=== PATIENT | female | born 1940 | race Caucasian/White ===

== ENCOUNTER 2018-04-13 09:45 | Outpatient (CLI) | payer MEDICARE, SELFPAY ==
[2018-04-13 14:11] LABS: HCT 42.4 % (36.0-46.0); HGB 13.7 g/dL (12.0-15.5); Mean Corp. HGB Concentration 32.3 g/dL (32.0-36.0); Mean Corpuscular Hemoglobin 30.1 pg (27.0-33.0); Mean Corpuscular Volume 93.2 fL (80-95); Mean Platelet Volume 11.5 fL (8.0-11.0); Platelet Count 228 x1000/uL (130-400); RBC 4.55 m/cumm (4.00-5.20); RBC Distribution Width 13.8 % (11.7-14.6)
[2018-04-13 15:10] LABS: ALT 27 U/L (12-78); AST 24 U/L (15-37); Albumin 3.9 g/dL (3.4-5.0); Alkaline Phosphatase 72 U/L (46-116); Anion Gap 6.3 mmol/L (3-11); BUN 15 mg/dL (7-18); Bilirubin, Total 0.5 mg/dL (0.2-1.0); CO2 28.7 mmol/L (21.0-32.0); CREATININE 0.96 mg/dL (0.55-1.02); Calcium 9.2 mg/dL (8.5-10.1); Chloride 101 mmol/L (98-107); Estimated GFR 56.06 (mL/min/1.73m2); Glucose 95 mg/dL (70-100); Magnesium 1.9 mg/dL (1.8-2.4); Potassium 4.4 mmol/L (3.5-5.1); Sodium 136 mmol/L (136-145); TSH (W/Ref FT4) 4.19 uIU/mL (0.358-3.74); Total Protein 8.6 g/dL (6.4-8.2)
[2018-04-13 15:34] LABS: FREE T4 0.97 ng/dL (0.76-1.46)
== END 2018-04-13 10:05 ==
PROVIDERS: PCP Student in an Organized Health Care Education/Training Program; Visit Provider Student in an Organized Health Care Education/Training Program
DX: R53.83 Other fatigue (principal); R25.2 Cramp and spasm; E86.0 Dehydration
CPT/HCPCS: 36415; 80053; 85027; 83735; 84439; 84443

== ENCOUNTER 2019-05-03 02:36 | Outpatient (CLI) | payer MEDICARE, SELFPAY ==
[2019-05-03 13:22] LABS: Anion Gap 6.9 mmol/L (3-11); BUN 15 mg/dL (7-18); CO2 30.1 mmol/L (21.0-32.0); CREATININE 0.97 mg/dL (0.55-1.02); Calcium 9.2 mg/dL (8.5-10.1); Calculated LDL 138 mg/dL; Chloride 102 mmol/L (98-107); Cholesterol 257 mg/dL (50-200); Estimated GFR 55.26 (mL/min/1.73m2); Glucose 92 mg/dL (70-100); HDL Cholesterol 87 mg/dL (40-60); Potassium 4.8 mmol/L (3.5-5.1); Sodium 139 mmol/L (136-145); TSH (W/Ref FT4) 6.42 uIU/mL (0.36-3.74); Triglyceride 164 mg/dL (30-150)
[2019-05-03 13:51] LABS: FREE T4 0.79 ng/dL (0.76-1.46)
== END 2019-05-03 02:56 ==
PROVIDERS: PCP Student in an Organized Health Care Education/Training Program; Visit Provider Student in an Organized Health Care Education/Training Program
DX: I10 Essential (primary) hypertension (principal); R79.89 Other specified abnormal findings of blood chemistry; Z13.6 Encounter for screening for cardiovascular disorders
CPT/HCPCS: 36415; 80048; 80061; 84439; 84443

== ENCOUNTER 2019-09-26 21:34 | Outpatient (REF) | payer MEDICARE, SELFPAY ==
[2019-09-26 19:23] LABS: Bilirubin Negative (Negative); Blood Moderate (Negative); Clarity Cloudy (Clear); Glucose Negative (Negative); Ketones Negative (Negative); Leukocyte Esterase Moderate (Negative); Nitrite Positive (Negative); Specific Gravity 1.015 (1.005-1.025); Urobilinogen 0.2 EU/dL (Up TO 0.2); pH 6.5 (5-8)
[2019-09-26 20:02] LABS: Epithelial Cells Few HPF (Negative); Other Cells Moderate Renal (Negative); RBC Negative HPF (0-2); WBC >50 HPF (0-5)
[2019-09-26 20:03] LABS: Bacteria Many HPF (Negative); C & S Indicated? Yes; Casts Negative LPF (Negative); Crystals Negative HPF (Negative); Mucus Negative (Negative)
== END 2019-09-26 21:54 ==
LOC: LBN 21:34
PROVIDERS: PCP Student in an Organized Health Care Education/Training Program; Visit Provider Student in an Organized Health Care Education/Training Program
DX: R82.90 Unspecified abnormal findings in urine (principal); R82.79 Other abnormal findings on microbiological examination of urine; R42 Dizziness and giddiness
CPT/HCPCS: 87077; 81003; 81015; 87086; 87186

== ENCOUNTER 2019-10-03 10:23 | Emergency (ER) | payer MEDICARE, SELFPAY ==
[2019-10-03] VITALS (17 sets, daily range): BP systolic 159–204; BP diastolic 61–76; PULSE 76–101; RESP 9–19; TEMP 36.5; O2SAT 87–98
--- NOTE | 2019-10-03 11:00 | DI.RAD_ITS ---
EXAM: XR CHEST 2V PA LATERAL CLINICAL HISTORY: Hypertension, paresthesias. TECHNIQUE: 2D digital imaging was performed. COMPARISON: No exams were available for comparison FINDINGS: LUNGS: Clear. No pleural abnormality seen. HEART: Normal. MEDIASTINUM: Normal. There is no evidence of pneumothorax. BONE:Degenerative changes are seen in the spine. No compression fractures are seen. IMPRESSION: No acute pulmonary findings. DATA REPOSITORY: RADIATION DOSE DELIVERED:
--- NOTE | 2019-10-03 11:00 | DI.CT_ITS ---
EXAM: CT HEAD WO CLINICAL HISTORY: Hypertension, paresthesias, weakness. TECHNIQUE: Imaging Protocol: Axial computed tomography images with coronal and sagittal reformatted images were created and reviewed COMPARISON: No exams were available for comparison FINDINGS: Ventricles and Extra axial spaces: Normal in size and morphology for the patient's age. Hemorrhage: None. Cerebral parenchyma: Normal. Midline shift: None. Brainstem/Cerebellum: Normal. Calvarium: Normal. Visualized Paranasal sinuses/Mastoids: mild ethmoid mucosal thickening. IMPRESSION: Normal CT of the head. RADIATION DOSE DELIVERED: DATA REPOSITORY: All CT scans at this facility are submitted to the National Radiology Data Registry (NRDR) Dose Index Registry (DIR) with the [employer] ([employer]). RADIATION OPTIMIZATION: All CT scans at this facility use at least one of these dose optimization te chniques: automated exposure control; mA and/or kV adjustment per patient size (includes targeted exa ms where dose is matched to clinical indication); or iterative reconstruction.
[2019-10-03 11:20] LABS: Abs Immature Grans 0.01 k/cumm (0.0-0.09); Absolute Basophil Count 0.02 k/cumm (0.0-0.2); Absolute Eosinophil Count 0.09 k/cumm (0.0-0.7); Absolute Lymphocyte Count 1.48 k/cumm (1.2-3.4); Absolute Monocyte Count 0.39 k/cumm (0.11-0.7); Absolute Neutrophil Count 4.44 k/cumm (1.2-6.7); Basophils % 0.3; Eosinophils % 1.4; HCT 41.9 % (36.0-46.0); HGB 14.3 g/dL (12.0-15.5); Immature Grans % 0.2 %; Mean Corp. HGB Concentration 34.1 g/dL (32.0-36.0); Mean Corpuscular Volume 90.9 fL (80-95); Mean Platelet Volume 10.7 fL (8.0-11.0); Monocytes % 6.1; Platelet Count 232 x1000/uL (130-400); RBC 4.61 m/cumm (4.00-5.20); RBC Distribution Width 13.8 % (11.7-14.6); White Blood Cell Count 6.43 k/cumm (4.4-10.8)
[2019-10-03 11:39] LABS: ALT 23 U/L (14-59); AST 24 U/L (15-37); Albumin 3.8 g/dL (3.4-5.0); Alkaline Phosphatase 74 U/L (46-116); Anion Gap 8.9 mmol/L (3-11); BUN 11 mg/dL (7-18); Bilirubin, Total 0.4 mg/dL (0.2-1.0); CO2 25.1 mmol/L (21.0-32.0); CREATININE 0.92 mg/dL (0.55-1.02); Calcium 8.9 mg/dL (8.5-10.1); Chloride 98 mmol/L (98-107); Estimated GFR 58.59 (mL/min/1.73m2); Glucose 123 mg/dL (74-106); Magnesium 1.7 mg/dL (1.8-2.4); Sodium 132 mmol/L (136-145); TSH (W/Ref FT4) 7.88 uIU/mL (0.36-3.74); Total Protein 8.6 g/dL (6.4-8.2)
[2019-10-03 11:44] LABS: Troponin I < 0.05 ng/Ml (<0.06)
[2019-10-03 12:00] LABS: FREE T4 1.01 ng/dL (0.76-1.46)
--- NOTE | 2019-10-03 12:20 | W.ED.GENAD ---
Discharge Plan Disposition Patient Disposition: HOME Condition: Stable Discharge Details Chief Complaint: GenMedical Clinical Impression: Weakness, Hypertension, UTI (urinary tract infection) Primary Care Provider: Pamela Moss ED Provider: Jose Andersen Home Meds and New Rx's Prescriptions: New cephalexin 500 mg capsule 500 mg PO BID 5 Days Qty: 10 RF: 0 Continued lisinopril 5 mg tablet 5 mg PO DAILY Qty: 30 RF: 0 Discharge Instructions Instructions: Urinary Tract Infection in Women (ED), Weakness (ED), Hypertension (ED) Additional Instructions: Keflex as directed, urine culture is pending. As we discussed, we would like you to now take 2 tablets of lisinopril daily for a total of 10 mg. I have personally spoken with your primary care provider who would like you to contact their office tomorrow morning at 8:00 and they will try to fit you in to an appointment tomorrow. Please watch for new or evolving symptoms and return to the ER for any concerns Discharge Data Discharge Date/Time-TO BE ENTERED AT DEPARTURE: 10/03/19 13:18 Medical Decision Making 79-year-old female reporting feeling weird and having weakness in multiple extremities at different times, worse in the left lower extremity. Both patient and allude that this is rather new however upon reviewing her last outpatient care visit on the , this appears to be much more chronic in nature. Her hypertension also appears to be chronic. She did present hypertensive today although has no chest pain, shortness of breath, headache, focal neurological deficit. Will monitor blood pressure closely will not aggressively treat. Given her age, vague complaints, will obtain cardiac work-up and obtain head CT. Will obtain urinalysis as she was recently on Bactrim for UTI. The patient and family are comfortable with this plan Although she remains hypertensive, blood pressure is trending downward without therapy. Work-up here in the ER reveals that her urine is improving although she still has a white cells. Sodium of 132, glucose of 123, magnesium 1.[address] of head and chest x-ray are both unremarkable. She remains asymptomatic, neurologically intact. Blood pressure is currently 159/61. Given the patient's vague complaints and now what appears to be more chronic problems, I did want to reach out to her primary care provider, Dr. Moss. She was aware of the patient's visit today and although she is scheduled to see the patient next week she will attempt to be evaluated tomorrow instead. She would like the patient to contact her office 8:00 in the morning and they will attempt to work her in. She is aware of the patient's work-up. She would like the patient to increase her dose of lisinopril to 10 mg daily. She has no additional questions or concerns regarding her visit today and is comfortable with her being discharged. Urine culture is pending. Given she still has white cells in her urine will initiate Keflex therapy. Medical Records Medical records reviewed: Yes I reviewed the patient's medical records. Imaging Data Radiologic Study: Attestation: I personally reviewed and interpreted this imaging study as follows: Imaging: X-Ray My impression: Chest x-ray read by me as negative Radiologic Study #2: Imaging: CT Scan Radiologist's impression: Head CT without contrast read by radiology is unremarkable Lab Data Lab results reviewed: Yes I reviewed the patient's lab results. Lab results narrative: 10/03/19 12:15 Urine - Reflex from Ua Urine Culture - Pending Laboratory Tests Range/Units 10/03/19 10/03/19 10/03/19 11:07 11:07 12:15 WBC (4.4-10.8) k/cumm 6.43 RBC (4.00-5.20) m/cumm 4.61 Hgb (12.0-15.5) g/dL 14.3 Hct (36.0-46.0) % 41.9 MCV (80-95) fL 90.9 MCH (27.0-33.0) pg 31.0 MCHC (32.0-36.0) g/dL 34.1 RDW (11.7-14.6) % 13.8 Plt Count (130-400) x1000/uL 232 MPV (8.0-11.0) fL 10.7 Immature Gran % % 0.2 Neutrophils % 69.0 Lymphocytes % 23.0 Monocytes % 6.1 Eosinophils % 1.4 Basophils % 0.3 Absolute Neutrophils (1.2-6.7) k/cumm 4.44 Absolute Lymphocytes (1.2-3.4) k/cumm 1.48 Absolute Monocytes (0.11-0.7) k/cumm 0.39 Absolute Eosinophils (0.0-0.7) k/cumm 0.09 Absolute Basophils (0.0-0.2) k/cumm 0.02 Sodium (136-145) mmol/L 132 L Potassium (3.5-5.1) mmol/L 4.0 Chloride (98-107) mmol/L 98 Carbon Dioxide (21.0-32.0) mmol/L 25.1 Anion Gap (3-11) mmol/L 8.9 BUN (7-18) mg/dL 11 Creatinine (0.55-1.02) mg/dL 0.92 Estimated GFR/1.73 m2 (mL/min/1.73m2) 58.59 Glucose (74-106) mg/dL 123 H Calcium (8.5-10.1) mg/dL 8.9 Magnesium (1.8-2.4) mg/dL 1.7 L Total Bilirubin (0.2-1.0) mg/dL 0.4 AST (15-37) U/L 24 ALT (14-59) U/L 23 Alkaline Phosphatase (46-116) U/L 74 Troponin I (<0.06) ng/Ml < 0.05 Total Protein (6.4-8.2) g/dL 8.6 H Albumin (3.4-5.0) g/dL 3.8 TSH (0.36-3.74) uIU/mL 7.88 H Free T4 (0.76-1.46) ng/dL 1.01 Urine Color (Yellow) Yellow Urine Clarity (Clear) Clear Urine pH (5-8) 6.5 Ur Specific [place] (1.005-1.025) 1.010 Urine Protein (Negative) mg/dL Negative Urine Ketones (Negative) mg/dL Negative Urine Blood (Negative) Small H Urine Nitrite (Negative) Negative Urine Bilirubin (Negative) Negative Urine Urobilinogen (Up TO 0.2) EU/dL 0.2 Ur Leukocyte Esterase (Negative) Trace H Urine RBC (0-2) HPF 5-10 H Urine WBC (0-5) HPF 10-20 H Ur Epithelial Cells (Negative) HPF Few Urine Crystals (Negative) HPF Negative Urine Bacteria (Negative) HPF Moderate Urine Casts (Negative) LPF Negative Urine Mucus (Negative) Negative Urine Other (Negative) Few transitional Ur Culture Indicated? Yes Urine Glucose (Negative) mg/dL Negative Range/Units 10/03/19 14:01 WBC (4.4-10.8) k/cumm RBC (4.00-5.20) m/cumm Hgb (12.0-15.5) g/dL Hct (36.0-46.0) % MCV (80-95) fL MCH (27.0-33.0) pg MCHC (32.0-36.0) g/dL RDW (11.7-14.6) % Plt Count (130-400) x1000/uL MPV (8.0-11.0) fL Immature Gran % % Neutrophils % Lymphocytes % Monocytes % Eosinophils % Basophils % Absolute Neutrophils (1.2-6.7) k/cumm Absolute Lymphocytes (1.2-3.4) k/cumm Absolute Monocytes (0.11-0.7) k/cumm Absolute Eosinophils (0.0-0.7) k/cumm Absolute Basophils (0.0-0.2) k/cumm Sodium (136-145) mmol/L Potassium (3.5-5.1) mmol/L Chloride (98-107) mmol/L Carbon Dioxide (21.0-32.0) mmol/L Anion Gap (3-11) mmol/L BUN (7-18) mg/dL Creatinine (0.55-1.02) mg/dL Estimated GFR/1.73 m2 (mL/min/1.73m2) Glucose (74-106) mg/dL Calcium (8.5-10.1) mg/dL Magnesium (1.8-2.4) mg/dL Total Bilirubin (0.2-1.0) mg/dL AST (15-37) U/L ALT (14-59) U/L Alkaline Phosphatase (46-116) U/L Troponin I (<0.06) ng/Ml Cancelled Total Protein (6.4-8.2) g/dL Albumin (3.4-5.0) g/dL TSH (0.36-3.74) uIU/mL Free T4 (0.76-1.46) ng/dL Urine Color (Yellow) Urine Clarity (Clear) Urine pH (5-8) Ur Specific [place] (1.005-1.025) Urine Protein (Negative) mg/dL Urine Ketones (Negative) mg/dL Urine Blood (Negative) Urine Nitrite (Negative) Urine Bilirubin (Negative) Urine Urobilinogen (Up TO 0.2) EU/dL Ur Leukocyte Esterase (Negative) Urine RBC (0-2) HPF Urine WBC (0-5) HPF Ur Epithelial Cells (Negative) HPF Urine Crystals (Negative) HPF Urine Bacteria (Negative) HPF Urine Casts (Negative) LPF Urine Mucus (Negative) Urine Other (Negative) Ur Culture Indicated? Urine Glucose (Negative) mg/dL ECG Data Attestation: I personally reviewed and interpreted this ECG (s) as follows: Interpretation: EKG reveals sinus rhythm, ventricular rate of 85. No acute ST elevation or depression segments. Reviewed with Dr. Taylor CHOI General Mode of arrival: ambulatory. Date/Time Provider Initiated Documentation: 10/03/19 10:34. Limitations to Documentation: no limitations. Information obtained by: patient. HPI Narrative: 79-year-old female presents to the ER with report of feeling weird for several days, cannot give me an exact timeline. She reports intermittent weakness in her extremities, she initially uses the word numbness, but upon further investigation she is not feeling numbness. She reports that her legs are occasionally giving out on her and she is focused primarily on her left lower extremity. head bucker note reports left face swelling at times but she does not report any of this to me even when I asked her about it. She and her are rather vague and poor historians. It appears as though she does not typically seek medical attention is rather hesitant to take medications. She did see her primary care provider in the last week or so, placed on oral Bactrim for UTI and was agreeable to taking 2.5 mg p.o. lisinopril for her chronic hypertension. She denies any headache, visual changes, chest pain, shortness of breath, numbness, tingling, weakness, abdominal pain, nausea, vomiting, incontinence, urinary or bowel symptoms. She actually reports right now with lying down she is asymptomatic. She reports that she only gets a sensation in her legs if she is standing for a prolonged period of time. Occasionally this sensation has also gone to her upper extremities but that has not been present for several days. Denies recent trauma or fall. Related Data Home Medications Medication Instructions Recorded Confirmed lisinopril 5 mg tablet 5 mg PO DAILY #30 tab 09/26/19 10/03/19 cephalexin 500 mg PO BID 5 Days #10 cap 10/03/19 Previous Rx's Medication Instructions Recorded lisinopril 5 mg tablet 5 mg PO DAILY #30 tab 09/26/19 cephalexin 500 mg PO BID 5 Days #10 cap 10/03/19 Allergies Allergy/AdvReac Type Severity Reaction Status Date / Time No Known Allergies Allergy Verified 10/03/19 10:34 General Stated Complaint: GenMedical REILLY: 4 Review of Systems Constitutional Constitutional: Denies chills, Denies fatigue, Reports fever(s) (Subjective last night), Denies headache(s) and Reports weakness (General, lower extremities) Eyes Eyes: Denies change in vision ENT Ears, Nose, Mouth, and Throat: Denies dizziness and Denies headache(s) Cardiovascular Cardiovascular: Denies chest pain and Denies dyspnea Respiratory Respiratory: Denies dyspnea and Denies wheezing Gastrointestinal Gastrointestinal: Denies abdominal pain, Denies nausea and Denies vomiting Genitourinary Genitourinary: Denies dysuria Musculoskeletal Musculoskeletal: Denies back pain, Denies myalgias, Reports muscle weakness, Denies numbness and Denies tingling Integumentary/Breasts Skin/Breast: Denies rash Neurologic Neurologic: Denies dizziness, Denies headache(s), Denies numbness, Denies radicular pain, Denies tingling, Denies paresthesias and Reports weakness (General, lower extremities) Endocrine Endocrine: Denies fatigue Allergic/Immunologic Allergic/Immunologic: Denies wheezing PFSH Family History Mother Essential hypertension Stroke Father Heart disease Son Alcohol abuse Sister Neoplasm colon Sister Neoplasm lung Sister No problems noted. Social History Smoking/Tobacco Use Status: Former Tobacco Use Tobacco: How many years used: 10 Alcohol Intake: never Substance use type: does not use Adopted: No Foster care: No Household members: spouse Number of Children: 6 current occupation: Retail What type of physical activity do you participate in: walking Frequency: 3-4 times per week Iris/Rastafari: [employer] Special iris needs: No Do you feel safe in your relationship?: Yes Exam Const General: cooperative, healthy appearing, comfortable and no acute distress Orientation: alert and awake [facility] Head: normal to inspection, normocephalic and atraumatic Ears: external ears normal, TM's normal bilaterally and EAC's normal Mouth: oral mucosae normal and moist mucous membranes Throat: posterior oropharynx normal Eyes Eyelids: eyelids normal Conjunctivae: conjunctivae normal Sclera: sclerae normal Cornea: corneas normal Pupils: PERRL EOM: EOM intact bilaterally Direct ophthalmoscopy: normal light reflex Neck Neck: normal visual inspection, full ROM, no lymphadenopathy, no meningeal signs, trachea midline and supple Resp Effort & Inspection: normal respiratory effort and able to speak in complete sentences Auscultation: clear to auscultation bilaterally Cardio Rate: regular rate Rhythm: regular rhythm GI Inspection: normal to inspection Palpation: soft, not firm, no guarding, not rigid and nontender Back/Spine/Pelvis Back: No back tenderness Skin General skin exam: no rashes or lesions noted Neuro General: alert, awake, oriented x3, moves all extremities and no focal motor deficits Cranial Nerves: CN's II-XI intact bilaterally Cognition: normal cognition Speech: speech normal Gait: normal gait Motor: muscle tone normal throughout, strength 5/5 throughout and no pronator drift Sensory Exam: no sensory deficits noted Coordination: [id number] test normal Extrem General: normal to inspection Psych Appearance: grossly normal Mental Status: mental status grossly normal Course Vital Signs Vital signs: Vital Signs Temperature 36.5 C 10/03/19 10:31 Pulse 101 H 10/03/19 10:31 Respiratory Rate 16 10/03/19 10:31 Blood Pressure 204/76 H 10/03/19 10:31 Pulse Oximetry 98 10/03/19 10:31 Temperature 36.5 C 10/03/19 10:31 Temperature Source Skin 10/03/19 10:31 Pulse 79 10/03/19 12:07 Respiratory Rate 14 10/03/19 12:07 Respiratory Effort Non-Labored 10/03/19 10:31 Blood Pressure 189/68 H 10/03/19 12:07 Blood Pressure Position Sitting 10/03/19 10:31 Pulse Oximetry 97 10/03/19 12:07 Oxygen Delivery Method Room Air 10/03/19 12:07 Oxygen Flow Rate 0 10/03/19 12:07 Pain Level 0 10/03/19 10:31 Lab/Test Results Lab/Test Results: Laboratory Tests Range/Units 10/03/19 10/03/19 11:07 11:07 WBC (4.4-10.8) k/cumm 6.43 RBC (4.00-5.20) m/cumm 4.61 Hgb (12.0-15.5) g/dL 14.3 Hct (36.0-46.0) % 41.9 MCV (80-95) fL 90.9 MCH (27.0-33.0) pg 31.0 MCHC (32.0-36.0) g/dL 34.1 RDW (11.7-14.6) % 13.8 Plt Count (130-400) x1000/uL 232 MPV (8.0-11.0) fL 10.7 Immature Gran % % 0.2 Neutrophils % 69.0 Lymphocytes % 23.0 Monocytes % 6.1 Eosinophils % 1.4 Basophils % 0.3 Absolute Neutrophils (1.2-6.7) k/cumm 4.44 Absolute Lymphocytes (1.2-3.4) k/cumm 1.48 Absolute Monocytes (0.11-0.7) k/cumm 0.39 Absolute Eosinophils (0.0-0.7) k/cumm 0.09 Absolute Basophils (0.0-0.2) k/cumm 0.02 Sodium (136-145) mmol/L 132 L Potassium (3.5-5.1) mmol/L 4.0 Chloride (98-107) mmol/L 98 Carbon Dioxide (21.0-32.0) mmol/L 25.1 Anion Gap (3-11) mmol/L 8.9 BUN (7-18) mg/dL 11 Creatinine (0.55-1.02) mg/dL 0.92 Estimated GFR/1.73 m2 (mL/min/1.73m2) 58.59 Glucose (74-106) mg/dL 123 H Calcium (8.5-10.1) mg/dL 8.9 Magnesium (1.8-2.4) mg/dL 1.7 L Total Bilirubin (0.2-1.0) mg/dL 0.4 AST (15-37) U/L 24 ALT (14-59) U/L 23 Alkaline Phosphatase (46-116) U/L 74 Troponin I (<0.06) ng/Ml < 0.05 Total Protein (6.4-8.2) g/dL 8.6 H Albumin (3.4-5.0) g/dL 3.8 TSH (0.36-3.74) uIU/mL 7.88 H Free T4 (0.76-1.46) ng/dL 1.01
[2019-10-03 12:25] LABS: Bilirubin Negative (Negative); Blood Small (Negative); Clarity Clear (Clear); Glucose Negative (Negative); Ketones Negative (Negative); Leukocyte Esterase Trace (Negative); Nitrite Negative (Negative); Urobilinogen 0.2 EU/dL (Up TO 0.2); pH 6.5 (5-8)
[2019-10-03 12:41] LABS: Bacteria Moderate HPF (Negative); C & S Indicated? Yes; Casts Negative LPF (Negative); Crystals Negative HPF (Negative); Epithelial Cells Few HPF (Negative); Mucus Negative (Negative); Other Cells Few Transitional (Negative)
== END 2019-10-03 13:18 | disposition home or self-care (01) ==
PROVIDERS: Emergency Provider Physician Assistant; PCP Student in an Organized Health Care Education/Training Program
DX: R53.1 Weakness (principal); N39.0 Urinary tract infection, site not specified; I10 Essential (primary) hypertension; Z87.440 Personal history of urinary (tract) infections
CPT/HCPCS: 36415; 80053; 93005; 99285; 70450; 71046; 81003; 81015; 83735; 84439; 84443; 84484; 85025; 87086; 93010

== ENCOUNTER 2019-10-21 01:15 | Outpatient (CLI) | payer MEDICARE, SELFPAY ==
[2019-10-21 14:57] LABS: Anion Gap 9.7 mmol/L (3-11); BUN 16 mg/dL (7-18); CO2 29.3 mmol/L (21.0-32.0); CREATININE 1.04 mg/dL (0.55-1.02); Chloride 96 mmol/L (98-107); Estimated GFR 50.86 (mL/min/1.73m2); Glucose 163 mg/dL (74-106); Magnesium 1.7 mg/dL (1.8-2.4); Potassium 4.8 mmol/L (3.5-5.1); Sodium 135 mmol/L (136-145)
== END 2019-10-21 01:35 ==
PROVIDERS: PCP Student in an Organized Health Care Education/Training Program; Visit Provider Student in an Organized Health Care Education/Training Program
DX: I10 Essential (primary) hypertension (principal); R89.9 Unspecified abnormal finding in specimens from other organs, systems and tissues; R29.898 Other symptoms and signs involving the musculoskeletal system
CPT/HCPCS: 36415; 80048; 83735

== ENCOUNTER 2020-11-26 03:45 | Outpatient (CLI) | payer MEDICARE, SELFPAY ==
[2020-11-26 12:58] LABS: Anion Gap 9.6 mmol/L (3-11); BUN 20 mg/dL (7-18); CO2 27.4 mmol/L (21.0-32.0); CREATININE 1.1 mg/dL (0.55-1.02); Calcium 9.3 mg/dL (8.5-10.1); Calculated LDL 133 mg/dL (<100); Chloride 100 mmol/L (98-107); Cholesterol 255 mg/dL (<200); Estimated GFR 47.55 (mL/min/1.73m2); Glucose 119 mg/dL (74-106); HDL Cholesterol 90 mg/dL (40-60); Magnesium 1.8 mg/dL (1.8-2.4); Potassium 4.4 mmol/L (3.5-5.1); Sodium 137 mmol/L (136-145); TSH (W/Ref FT4) 6.28 uIU/mL (0.36-3.74); Triglyceride 163 mg/dL (<150)
[2020-11-26 13:26] LABS: FREE T4 0.83 ng/dL (0.76-1.46)
== END 2020-11-26 03:46 | disposition home or self-care (01) ==
LOC: LOS 03:45
PROVIDERS: PCP Student in an Organized Health Care Education/Training Program; Visit Provider Student in an Organized Health Care Education/Training Program
DX: I10 Essential (primary) hypertension (principal); E83.42 Hypomagnesemia; R79.89 Other specified abnormal findings of blood chemistry
CPT/HCPCS: 36415; 80048; 80061; 83735; 84439; 84443

== ENCOUNTER → 2021-11-12 09:44 | Outpatient (BNVA) | payer MEDICARE, SELFPAY | PROVIDERS: PCP Student in an Organized Health Care Education/Training Program; Referring Provider Student in an Organized Health Care Education/Training Program; Visit Provider Surgery | DX: L98.9 Disorder of the skin and subcutaneous tissue, unspecified (principal) | CPT/HCPCS: 11422; 99203; 99215 ==

== ENCOUNTER 2021-11-12 11:28 | Outpatient (REF) | payer MEDICARE, SELFPAY ==
--- NOTE | 2021-11-12 10:30 | SKI_PTH ---
PATIENT: Adela Hampton LOC: [facility] U#:[id number] AGE/SX: 81/F ROOM: RE11/12/[address]: Danika Hdz MD : [id number] BED: DIS: 11/12/2021 SPEC #: [id number] RECD: 11/12/21 12:37 STATUS: JERARDO REQuinton #: [id number] JO: 11/12/21 10:[address]: Danika Hdz DEPT: Surgical Specimen RECD BY: Ruth Carlin ENTERED: 11/12/21 12:38 SP TYPE: [facility] DR: Pamela Moss DO Tissues: 1 - SKIN BIOPSY(SHAVE/PUNCH) Procedures: SKIN LEVEL 4 Comments: [id number]
== END 2021-11-12 11:29 | disposition home or self-care (01) ==
LOC: LBN 11:28
PROVIDERS: PCP Student in an Organized Health Care Education/Training Program; Visit Provider Surgery
DX: L82.1 Other seborrheic keratosis (principal)
CPT/HCPCS: 88305

== ENCOUNTER 2021-11-23 02:20 | Outpatient (CLI) | payer MEDICARE, SELFPAY ==
[2021-11-23 13:26] LABS: Anion Gap 9.4 mmol/L (3-11); BUN 21 mg/dL (7-18); CO2 26.6 mmol/L (21.0-32.0); Calcium 9.2 mg/dL (8.5-10.1); Chloride 96 mmol/L (98-107); Estimated GFR 52.95 (mL/min/1.73m2); Glucose 102 mg/dL (74-106); Potassium 4.8 mmol/L (3.5-5.1); Sodium 132 mmol/L (136-145)
[2021-11-28 14:21] LABS: Lab Add On Test DONE
[2021-11-29 18:27] LABS: Osmolality Serum 286 mOsm/kg (275-295)
== END 2021-11-23 02:21 | disposition home or self-care (01) ==
LOC: LBO 02:21
PROVIDERS: PCP Student in an Organized Health Care Education/Training Program; Visit Provider Student in an Organized Health Care Education/Training Program
DX: R79.89 Other specified abnormal findings of blood chemistry (principal); E87.1 Hypo-osmolality and hyponatremia
CPT/HCPCS: 36415; 80048; 83930

== ENCOUNTER 2022-01-25 00:57 | Outpatient (CLI) | payer MEDICARE, SELFPAY ==
[2022-01-25 11:22] LABS: HCT 37.9 % (36.0-46.0); HGB 12.9 g/dL (11.2-15.7); MCH 30.8 pg (27.0-33.0); MCV 91 fL (80-95); MPV 10.8 fL (8.0-11.0); Platelet Count 213 10^3/uL (130-400); RBC 4.19 10^6/uL (3.93-5.22); RDW 13.3 % (11.7-14.6); RDW-SD 44.1 fL; WBC 7.36 10^3/uL (4.4-10.8)
[2022-01-25 11:56] LABS: Anion Gap 9.8 mmol/L (3-11); BUN 20 mg/dL (7-18); CO2 26.2 mmol/L (21.0-32.0); CREATININE 1.1 mg/dL (0.55-1.02); Calcium 9.2 mg/dL (8.5-10.1); Chloride 95 mmol/L (98-107); Estimated GFR 47.43 (mL/min/1.73m2); Glucose 102 mg/dL (74-106); Potassium 4.4 mmol/L (3.5-5.1); Sodium 131 mmol/L (136-145)
== END 2022-01-25 00:58 | disposition home or self-care (01) ==
PROVIDERS: PCP Student in an Organized Health Care Education/Training Program; Visit Provider Student in an Organized Health Care Education/Training Program
DX: I10 Essential (primary) hypertension (principal); R53.83 Other fatigue; R79.89 Other specified abnormal findings of blood chemistry
CPT/HCPCS: 36415; 80048; 85027

== ENCOUNTER 2022-08-04 02:13 | Outpatient (CLI) | payer MEDICARE, SELFPAY ==
[2022-08-04 12:50] LABS: Anion Gap 7.7 mmol/L (3-11); BUN 17 mg/dL (7-18); CO2 28.3 mmol/L (21.0-32.0); Calcium 9.2 mg/dL (8.5-10.1); Chloride 96 mmol/L (98-107); Estimated GFR 55.55 (mL/min/1.73m2); Glucose 90 mg/dL (74-106); Potassium 3.8 mmol/L (3.5-5.1); Sodium 132 mmol/L (136-145); TSH (W/Ref FT4) 6.35 uIU/mL (0.36-3.74)
[2022-08-04 13:06] LABS: FREE T4 0.85 ng/dL (0.76-1.46)
== END 2022-08-04 02:14 | disposition home or self-care (01) ==
LOC: LOS 02:13
PROVIDERS: PCP Student in an Organized Health Care Education/Training Program; Visit Provider Student in an Organized Health Care Education/Training Program
DX: I10 Essential (primary) hypertension (principal); R79.89 Other specified abnormal findings of blood chemistry
CPT/HCPCS: 36415; 80048; 84439; 84443

== ENCOUNTER 2023-01-13 01:05 | Outpatient (CLI) | payer MEDICARE, SELFPAY ==
[2023-01-13 13:16] LABS: Anion Gap 7.5 mmol/L (3-11); BUN 19 mg/dL (7-18); CO2 26.5 mmol/L (21.0-32.0); Calcium 9.3 mg/dL (8.5-10.1); Chloride 98 mmol/L (98-107); Estimated GFR 55.55 (mL/min/1.73m2); Glucose 107 mg/dL (74-106); Potassium 4.1 mmol/L (3.5-5.1); Sodium 132 mmol/L (136-145)
[2023-01-13 13:17] LABS: Sodium, Urine 45 mmol/L
[2023-01-13 22:02] LABS: Osmolality, Urine 279 mOsm/kg (150-1150)
== END 2023-01-13 01:06 | disposition home or self-care (01) ==
LOC: LOS 01:06
PROVIDERS: PCP Student in an Organized Health Care Education/Training Program; Visit Provider Student in an Organized Health Care Education/Training Program
DX: I10 Essential (primary) hypertension (principal); E87.1 Hypo-osmolality and hyponatremia; R79.89 Other specified abnormal findings of blood chemistry
CPT/HCPCS: 36415; 80048; 83935; 84300

== ENCOUNTER 2024-01-17 01:46 | Outpatient (CLI) | payer MEDICARE, SELFPAY ==
[2024-01-17 10:40] LABS: COMMENT (LAB VIEW ONLY) 65.47 mg/dL
[2024-01-17 10:41] LABS: Microalb ug/mg Crea 109.2 ug/mg Cr
[2024-01-17 11:03] LABS: Anion Gap 6.6 mmol/L (3-11); BUN 17 mg/dL (7-18); CO2 29.4 mmol/L (21.0-32.0); CREATININE 1.1 mg/dL (0.55-1.02); Calcium 9.6 mg/dL (8.5-10.1); Chloride 96 mmol/L (98-107); Estimated GFR 49.24 (mL/min/1.73m2); Glucose 128 mg/dL (74-106); Magnesium 1.9 mg/dL (1.8-2.4); Sodium 132 mmol/L (136-145); TSH (W/Ref FT4) 7.32 uIU/mL (0.36-3.74); Vitamin D 25 Total 18.8 ng/mL (30-100)
[2024-01-17 11:20] LABS: FREE T4 0.77 ng/dL (0.76-1.46)
== END 2024-01-17 01:47 | disposition home or self-care (01) ==
LOC: LBO 01:46
PROVIDERS: Absent Provider Student in an Organized Health Care Education/Training Program; PCP Student in an Organized Health Care Education/Training Program; Referring Provider Student in an Organized Health Care Education/Training Program; Visit Provider Student in an Organized Health Care Education/Training Program
DX: K90.9 Intestinal malabsorption, unspecified (principal); I10 Essential (primary) hypertension; R79.89 Other specified abnormal findings of blood chemistry; Z91.89 Other specified personal risk factors, not elsewhere classified; E87.1 Hypo-osmolality and hyponatremia; R42 Dizziness and giddiness; N18.30 Chronic kidney disease, stage 3 unspecified
CPT/HCPCS: 36415; 80048; 82306; 82043; 82570; 83735; 84439; 84443

== ENCOUNTER 2024-11-06 02:50 | Outpatient (CLI) | payer MEDICARE, SELFPAY ==
[2024-11-06 15:02] LABS: Hemoglobin A1C 5.8 % (<5.7)
[2024-11-06 17:03] LABS: Anion Gap 8.5 mmol/L (3-11); BUN 18 mg/dL (7-18); CO2 28.5 mmol/L (21.0-32.0); CREATININE 1.1 mg/dL (0.55-1.02); Calcium 9.3 mg/dL (8.5-10.1); Chloride 96 mmol/L (98-107); Estimated GFR 48.94 (mL/min/1.73m2); Glucose 94 mg/dL (74-106); Potassium 4.6 mmol/L (3.5-5.1); Sodium 133 mmol/L (136-145); TSH 9.68 uIU/mL (0.36-3.74); Vitamin D 25 Total 34 ng/mL (30-100)
== END 2024-11-06 02:51 | disposition home or self-care (01) ==
PROVIDERS: PCP Nurse Practitioner Family; Visit Provider Emergency Medicine
DX: I10 Essential (primary) hypertension (principal); N18.30 Chronic kidney disease, stage 3 unspecified; R79.89 Other specified abnormal findings of blood chemistry; E87.1 Hypo-osmolality and hyponatremia; E11.9 Type 2 diabetes mellitus without complications
CPT/HCPCS: 36415; 80048; 82306; 83036; 84443

== ENCOUNTER 2024-11-27 12:51 | Outpatient (CLI) | payer MEDICARE, SELFPAY ==
[2024-11-27 13:01] LABS: Abs Immature Grans 0.03 10^3/uL (0.0-0.06); Absolute Basophil Count 0.05 10^3/uL (0.0-0.2); Absolute Eosinophil Count 0.01 10^3/uL (0.0-0.7); Absolute Lymphocyte Count 1.99 10^3/uL (1.2-3.4); Absolute Neutrophil Count 6.13 10^3/uL (1.2-6.7); Basophils % 0.6 %; Eosinophils % 0.1 %; HCT 38.5 % (36.0-46.0); HGB 12.7 g/dL (11.2-15.7); Immature Grans % 0.3 %; Lymphocytes % 22.3 %; MCH 30.2 pg (27.0-33.0); MCV 91 fL (80-95); MPV 10.5 fL (8.0-11.0); Monocytes % 7.9 %; Neutrophils % 68.8 %; Platelet Count 227 10^3/uL (130-400); RBC 4.21 10^6/uL (3.93-5.22); RDW 13.3 % (11.7-14.6); RDW-SD 44.8 fL; WBC 8.91 10^3/uL (4.4-10.8)
[2024-11-27 13:30] LABS: ALT 21 U/L (14-59); AST 31 U/L (15-37); Albumin 4.1 g/dL (3.4-5.0); Alkaline Phosphatase 68 U/L (46-116); Bilirubin, Direct 0.2 mg/dL (0.0-0.2); Bilirubin, Total 0.6 mg/dL (0.2-1.0)
[2024-11-28 05:27] LABS: Lab Add On Test DONE
[2024-11-28 05:43] LABS: FREE T4 0.91 ng/dL (0.76-1.46)
== END 2024-11-27 12:52 | disposition home or self-care (01) ==
LOC: LBO 12:51
PROVIDERS: PCP Nurse Practitioner Family; Visit Provider Nurse Practitioner Family
DX: R21 Rash and other nonspecific skin eruption (principal); R79.89 Other specified abnormal findings of blood chemistry
CPT/HCPCS: 36415; 80076; 84439; 85025